=== PATIENT | female | born 1945 | race Caucasian/White ===

== ENCOUNTER → 2017-06-06 | Outpatient (CLI) | payer MEDICARE, OTHER ==
[~2017-06-06] MED LIST: ASCO-182 PO; ASPI-1471 PO; CA C1TAB85 PO; CALC600T63 PO; CHOL10005 PO; CYAN100017 PO; GLUC1TAB13 PO; IRON18TA2 PO; LISI20TA29 PO; LISI5TAB25 PO; LYSI500T32 PO; MULT1TAB64 PO; NO CURRENT MEDS; OMEG-11 PO; OMEG500C5 PO; PRIM50TA PO; ROSU10TA13 PO; SIMV-54 PO
[2017-06-06 11:06] LABS: PLATELET COUNT, AUTOMATED 261 K/uL (150-450)
[2017-06-06 11:55] LABS: LDL CHOLESTEROL 42 mg/dl
== END ==
LOC: LAB 10:49
PROVIDERS: ATTEND Emergency Medicine
DX: I10 Essential (primary) hypertension (principal); E83.52 Hypercalcemia
CPT/HCPCS: 36415; 82040; 82247; 82310; 82374; 82435; 82465; 82565; 82947; 83718; 84075; 84132; 84155; 84295; 84450; 84460; 84478; 84520; 85025

== ENCOUNTER → 2017-12-10 | Outpatient (CLI) | payer MEDICARE, OTHER ==
[~2017-12-10] MED LIST changes: -ROSU10TA13 PO; +ROSU10TA5 PO
--- NOTE | 2017-12-10 16:34 | RADIOLOGY IMAGING REPORT ---
FACILITY: [facility] - [place] PATIENT NAME: SUPRIYA ENGEL : [id number] MR: [id number] V: [id number] EXAM DATE: [id number] ORDERING PHYSICIAN: BERT HATFIELD TECHNOLOGIST: Geovanna Ramos PROCEDURE:BILATERAL DIGITAL SCREENING MAMMOGRAM WITH CAD ASSISTED INTERPRETATION & 3D TOMOSYNTHESIS COMPARISON:Prior mammograms 06/01/15, 04/01/14, 11/13/12, 01/02/11. INDICATIONS:screening FINDINGS: A small amount of fibroglandular tissue is seen throughout the breasts. The parenchymal pattern has remained stable allowing for difference in mammographic technique & patient positioning. There is no evidence of malignant appearing mass, malignant appearing calcifications or other secondary sign of malignancy in either breast. DIAGNOSTIC CATEGORY 1--NEGATIVE. RECOMMENDATIONS: ROUTINE MAMMOGRAM AND CLINICAL EVALUATION. IMPRESSION: BIRADS 1: Negative. No significant abnormality is seen. Dictated by: Victoria Osei M.D. on 12/10/2017 at 15:33 Transcribed by: YASMIN on 12/10/2017 at 15:39 Approved by: Victoria Osei M.D. on 12/10/2017 at 16:33 [facility]
== END ==
LOC: MAMO 00:36
PROVIDERS: ATTEND Emergency Medicine
DX: Z12.31 Encounter for screening mammogram for malignant neoplasm of breast (principal)
CPT/HCPCS: 77063; 77067

== ENCOUNTER → 2018-05-29 | Outpatient (CLI) | payer MEDICARE, OTHER ==
[2018-05-29 10:21] LABS: PLATELET COUNT, AUTOMATED 256 K/uL (150-450)
[2018-05-29 10:35] LABS: LDL CHOLESTEROL 48 mg/dl
--- NOTE | 2018-05-29 15:38 | RADIOLOGY IMAGING REPORT ---
FACILITY: [facility] PATIENT NAME: Shannen Gtz : 1945 MR: [id number] V: [id number] EXAM DATE: ORDERING PHYSICIAN: BERT HATFIELD TECHNOLOGIST: Location: [facility] [place] Patient: Shannen Gtz : 1945 Visit/Account:[id number] Date of Sevice: 05/29/2018 DEXA Scan Clinical history: Osteopenia. Comparison: February 22, 2013 LUMBAR SPINE: The bone mineral density (BMD) measured from L1-L4 correlates with a Z-score 0.2 and a T-score of -0. 3 which is Normal as defined by the World Health Organization. The corresponding risk of fracture in the lumbar spine is Not increased compared with a young adult reference population. HIP: Bone mineral density (BMD) measured in the Left total hip region correlates with a Z-score 0.1 and a T-score of -0.7 which is Normal as defined by the World Health Organization. The corresponding risk of fracture in the hip is Not increased compared with a young adult reference population. Bone mineral density (BMD) measured in the Femoral Neck region measures 0.99 g/cm2. Impression: 1. Lumbar spine: Normal. 2. Left Hip: Normal. 3. Femoral Neck: Bone Mineral Density is 0.99 g/cm2 4. No statistically significant interval change is The next DEXA scan of this patient should include the following sites: L1-L4 and the left hip. FRAX? WHO Fracture Risk Assessment Tool link: <http://www.shef.ac.uk/FRAX/tool.jsp?locationValue=9> PLEASE NOTE: 1) The World Health Organization defines low BMD as follows: T-score Normal > -1 Osteopenia < -1 and > -2.5 Osteoporosis < -2.5 without fractures Established osteoporosis < -2.5 with fractures 2) In general, you may wish to consider: Diagnosis Treatment Follow-up DEXA Normal BMD Prevention 2-3 years Osteopenia Prevention/therapy 1-2 years Osteoporosis Therapy Yearly 3) Fracture risk estimated from the T-score is more accurate for vertebral fractures (often spontane ous) than for hip fractures. Report Dictated By: Gabo Rosas MD at 05/29/2018 3:33 PM Report E-Signed By: Gabo Rosas MD at 05/29/2018 3:35 PM WSN:[email or web address]
== END ==
LOC: RAD 02:21
PROVIDERS: ATTEND Emergency Medicine
DX: I10 Essential (primary) hypertension (principal); Z91.81 History of falling; Z78.0 Asymptomatic menopausal state
CPT/HCPCS: 36415; 77080; 82040; 82247; 82310; 82374; 82435; 82465; 82565; 82947; 83718; 84075; 84132; 84155; 84295; 84450; 84460; 84478; 84520; 85025